=== PATIENT | male | born 2000 | race Caucasian/White ===

== ENCOUNTER 2025-04-07 07:23 | Emergency (ER) | payer MEDICAID ==
[~2025-04-07] VITALS: Ht 172.7 cm; Wt 77.0 kg
[2025-04-07 07:30] VITALS: O2SAT 98
[2025-04-07] MEDS: ACETAMINOPHEN 325MG TABLET PO ONE (08:25)
[2025-04-07] MEDS: TETANUS, DIPHTHERIA, PERTUSSIS VAC/PF 0.5ML (>10YR OLD) IM ONE (08:25)
[2025-04-07 09:37] VITALS: BP 120/81; PULSE 71; RESP 16; TEMP 36.8; O2SAT 99
== END 2025-04-07 09:38 | disposition home or self-care (01) ==
LOC: ER 07:23
DX: S01.01XA Laceration without foreign body of scalp, initial encounter (principal); S06.9X9A Unspecified intracranial injury with loss of consciousness of unspecified duration, initial encounter; Z79.899 Other long term (current) drug therapy; V89.2XXA Person injured in unspecified motor-vehicle accident, traffic, initial encounter; Y93.89 Activity, other specified; Y92.89 Other specified places as the place of occurrence of the external cause; Y99.8 Other external cause status
CPT/HCPCS: 70450; 72125; 90715; 12002; 90471; 99291; Z7610 ×4

== ENCOUNTER 2025-04-21 20:14 | Emergency (ER) | payer MEDICAID, OTHER ==
[~2025-04-21] VITALS: Ht 167.6 cm; Wt 77.0 kg
[2025-04-21 20:44] VITALS: O2SAT 100
[2025-04-21 20:59] VITALS: BP 128/79; PULSE 76; RESP 16; TEMP 36.9; O2SAT 100
== END 2025-04-21 23:40 | disposition home or self-care (01) ==
LOC: ER 20:14
DX: S01.01XD Laceration without foreign body of scalp, subsequent encounter (principal); X58.XXXD Exposure to other specified factors, subsequent encounter
CPT/HCPCS: 99281